=== PATIENT | female | born 1970 | race Caucasian/White ===

== ENCOUNTER 2017-03-06 15:42 | Emergency (ER) | payer MEDICAID ==
[~2017-03-06] VITALS: Ht 162.6 cm; Wt 83.9 kg
[2017-03-06 16:12] VITALS: BP 157/100
--- NOTE | 2017-03-06 19:26 | NUR ---
TO ER OF1
--- NOTE | 2017-03-06 19:34 | NUR ---
Patient being evaluated by physician.
[2017-03-06 20:15] VITALS: BP 156/94
--- NOTE | 2017-03-06 20:15 | NUR ---
Patient discharged with v/s stable. Written and verbal after care instructions given and explained. Patient alert, oriented and verbalized understanding of instructions. Ambulatory with steady gait. All questions addressed prior to discharge. ID band removed. Patient advised to follow up with PMD. Rx of AZITHROMYCIN AND DEXTROMETHORPHAN given. Patient educated on indication of medication including possible reaction and side effects. Opportunity to ask questions provided and answered.
== END 2017-03-06 20:15 | disposition home or self-care (01) ==
LOC: MED 15:42
DX: J02.8 Acute pharyngitis due to other specified organisms (principal); B96.89 Other specified bacterial agents as the cause of diseases classified elsewhere; I10 Essential (primary) hypertension

== ENCOUNTER 2017-08-16 11:43 | Emergency (ER) | payer MEDICAID ==
[~2017-08-16] VITALS: Ht 165.1 cm; Wt 113.4 kg
[2017-08-16 12:02] VITALS: BP 142/89
--- NOTE | 2017-08-16 12:14 | NUR ---
PATIENT PRESENTS TO ED WITH C/O LEFT ANKLE INJURY--X TODAY, SWELLING, UNABLE TO BEAR ANY WEIGHT; S/P FALL HX---HTN, BIPOLAR, RX---TOMAPAX NON COMPLIANT OF HTN; DENIES N/V/D; SKIN IS PINK/WARM/DRY; AAOX4 WITH EVEN AND STEADY GAIT; LUNGS CLEAR BL; HR EVEN AND REGULAR; PT DENIES ANY FEVER, CP, SOB, OR COUGH AT THIS TIME; PATIENT STATES PAIN OF 10/10 AT THIS TIME; VSS; PATIENT POSITIONED FOR COMFORT; HOB ELEVATED; BEDRAILS UP X2; BED DOWN. ER MD MADE AWARE OF PT STATUS.
--- NOTE | 2017-08-16 12:15 | NUR ---
SIGNALLING AND COMMUNICATIONS ENGINEER AT BEDSIDE FOR LEFT ANKLE
[2017-08-16] MEDS ORDERED: KETOROLAC 60 MG/2 ML VIAL IM ONE (12:35)
[2017-08-16 13:20] VITALS: BP 138/73
== END 2017-08-16 13:20 | disposition home or self-care (01) ==
LOC: MED 11:43
DX: S93.402A Sprain of unspecified ligament of left ankle, initial encounter (principal); I10 Essential (primary) hypertension; W50.2XXA Accidental twist by another person, initial encounter; Y93.89 Activity, other specified; Y92.89 Other specified places as the place of occurrence of the external cause; Y99.8 Other external cause status
CPT/HCPCS: 73610; 96372; 99284; J1885; Q0092